=== PATIENT | male | born 1995 | race Caucasian/White ===

== ENCOUNTER 2017-07-23 16:33 | Emergency (ER) | payer OTHER ==
[~2017-07-23] VITALS: Ht 167.6 cm; Wt 62.6 kg
[2017-07-23 16:36] VITALS: BP 120/78
--- NOTE | 2017-07-23 16:40 | ED GI/GU/ABDOMINAL COMPLAINT ---
See Addendum History of Present Illness General Chief Complaint: Male Genitourinary Problems Stated Complaint: PT TESTICULAR PAIN AND SWELLING Source: patient Exam Limitations: no limitations Vital Signs & Intake/Output Vital Signs & Intake/Output Vital Signs Date Time Temp Pulse Resp B/P B/P Pulse O2 O2 Flow FiO2 Mean Ox Delivery Rate 07/23 1636 98.0 71 18 120/78 98 Room Air Allergies Coded Allergies: No Known Allergies (07/23/17) Triage Note: 21 YO MALE TO TRIAGE FROM URGENT CARE FOR EVAL OF SWOLLEN TESTICLE X3 DAYS. REPORTS BURNING WITH URIANTION. Triage Nurses Notes Reviewed? yes Onset: Gradual Duration: constant Timing: recent history Severity Numbers: 5 HPI: Patient is a 21-year-old male who presents emergency room with concerns of a three-day history of gradual onset of right-sided lower pelvic and testicular pain patient does state that she days prior to the onset of symptoms he has had significant increase of his workouts and lifting heavy weights Patient's last sexual encounter was approximately 2 months ago. Patient is also complaining of pain with urination however denies any urethral discharge. Denies any erythema or worse or skin irritation or vesicles to the region. Denies any nausea vomiting abdominal pain or testicular swelling (Tanner Keenan) Past History Travel History Traveled to [place] past 21 day No Medical History Any Pertinent Medical History? see below for history Neurological: NONE EENT: NONE Cardiovascular: NONE Respiratory: asthma Gastrointestinal: NONE Hepatic: NONE Renal: NONE Musculoskeletal: NONE Psychiatric: NONE Endocrine: NONE Blood Disorders: NONE Cancer(s): NONE FISHERIES SPECIALIST/Reproductive: NONE Surgical History Surgical History: non-contributory Psychosocial History What is your primary language Luxembourgish Tobacco Use: Current Daily Use Daily Tobacco Use Amount/Type: =< 4 Cigarettes daily Family History Hx Contributory? No (Tanner Keenan) Review of Systems Review of Systems Constitutional: Reports: no symptoms. EENTM: Reports: no symptoms. Respiratory: Reports: no symptoms. Cardiovascular: Reports: no symptoms. GI: Reports: see HPI. Genitourinary: Reports: see HPI, urgency. Musculoskeletal: Reports: no symptoms. Skin: Reports: no symptoms. Neurological/Psychological: Reports: no symptoms. Hematologic/Endocrine: Reports: no symptoms. Immunologic/Allergic: Reports: no symptoms. All Other Systems: Reviewed and Negative (Tanner Keenan) Physical Exam Physical Exam General Appearance: no apparent distress, alert, comfortable Head: atraumatic Eyes: Bilateral: normal appearance. Ears, Nose, Throat, Mouth: moist mucous membrane Neck: normal inspection Respiratory: normal breath sounds Gastrointestinal: normal bowel sounds, soft Extremities: normal range of motion Neurologic/Psych: no motor/sensory deficits, awake Skin: intact, normal color Comments: -normal inspection mild generalized right testicular pain no swelling noted cremaster reflex intact no observable hernia mild right lower pelvic point tenderness, no rebound tenderness no right lower quadrant abdominal pain No urethral discharge Core Measures ACS in differential dx? No Sepsis Present: No Sepsis Focused Exam Completed? No (Michelle DANIELS,Tanner) Progress Differential Diagnosis: appendicitis, biliary colic, bowel obstruction, epididymitis, esophageal varices, gastritis, hepatitis, hernia, hemorrhoids, ischemic bowel, inflamm bowel dis, orchitis, pancreatitis, prostatitis, peptic ulcer, PUD/GERD, perforated viscous, pyelonephritis, SBO, STD, testicular torsion, ureterolithiasis, urinary retention, urethritis, UTI/pyelo Plan of Care: Orders Procedure Date/time Status CULTURE,URINE 07/23 163 Active URINALYSIS 07/23 163 Complete Laboratory Tests 07/23/17 1651: Urine Color STRAW, Urine Clarity CLEAR, Urine pH 6.5, Ur Specific Cullen 1.020, Urine Protein NEG, Urine Ketones NEG, Urine Nitrite NEG, Urine Bilirubin NEG, Urine Urobilinogen 0.2, Ur Leukocyte Esterase NEG, Ur Microscopic EXAM NOT REQUIRED, Urine Hemoglobin NEG, Urine Glucose NEG Microbiology 07/23 1651 URINE ROUT: Urine Culture - RECD On examination there is no concerns of appendicitis. No concerns at this time of testicular torsion however ultrasound will be obtained. Urinalysis currently pending. No observable hernia is noted on exam patient was able to perform trunk flexion in the supine position to activate patient's abdominal wall in which he has nontender abdomen performing this activity no signs of hernia Patient one reevaluated again is resting comfortably at bedside again no right lower abdominal pain but patient does have minimal right groin pain 5 out of 5 resisted range of motion noted with hip abduction to right lower extremity I reviewed a urinalysis and ultrasound with patient patient was strongly advised to follow-up with an established [place] faculty practice and to follow-up with Dr. Landry for possible abdominal wall hernia Diagnostic Imaging: Viewed by Me: Ultrasound. Radiology Impression: no acute abnormality, no fracture Initial ED EKG: none Comments: PATIENT: MACRINA MCKEON PRESENT AGE: 21 PATIENT ACCOUNT NO: [id number] : 96 LOCATION: [facility] ORDERING PHYSICIAN: Tanner DANIELS SERVICE DATE: 07/23/17 EXAM TYPE: US - US-TESTICULAR EXAMINATION: US SCROTUM CLINICAL INFORMATION: Testicular pain and swelling. COMPARISON: None TECHNIQUE: A sonogram of the scrotum was performed assessing plata-scale appearance and color Doppler flow. Spectral analysis and Doppler interrogation was performed. FINDINGS: RIGHT: Right testicle measures 3.8 x 2.3 x 3.4 cm, volume 21 mL. Parenchymal echotexture is normal. No focal testicular parenchymal lesions are visualized. Normal symmetric intratesticular Doppler flow is visualized. Right epididymal head is normal in size. No right hydrocele or varicocele is seen. LEFT: Left testicle measures 3.3 x 2.8 x 2.6 cm, volume 17 mL. Parenchymal echotexture is normal. No focal testicular parenchymal lesions are visualized. Normal symmetric intratesticular Doppler flow is visualized. Left epididymal head is normal in size. No left hydrocele or varicocele is seen. IMPRESSION: Normal. DICTATED BY: Jaswant Pelletier MD DATE/TIME DICTATED:07/23/171745 AUDIO VISUAL PROJECT MANAGER:HANNAH (Tanner Keenan) Departure Departure Disposition: HOME OR SELF CARE Condition: Stable Clinical Impression Primary Impression: Right groin pain Secondary Impressions: Testicular pain, right Referrals: Frantz HALE,Karthik Collins Additional Instructions: As discussed begin [id number] ibuprofen for pain and inflammation, if no better next week follow-up with surgeon Dr. Landry. Follow-up tomorrow with [facility] practice to establish a doctor. If symptoms worsen or if he develop any new concerning symptom return to emergency room, the next week please limits your physical activity especially significant exercising as this may worsen your symptoms Departure Forms: Customer Survey General Discharge Information (Tanner Keenan) PA/CERAMICS TECHNICIAN Co-Sign Statement Statement: ED Attending supervision documentation- [] I saw and evaluated the patient. I have also reviewed all the pertinent lab results and diagnostic results. I agree with the findings and the plan of care as documented in the PA's/CERAMICS TECHNICIAN's documentation. [X] I have reviewed the ED Record and agree with the PA's/CERAMICS TECHNICIAN's documentation. [] Additions or exceptions (if any) to the PAs/CERAMICS TECHNICIAN's note and plan are summarized below: [] (Brad Olivares DO)
--- NOTE | 2017-07-23 17:51 | ULTRASOUND REPORT ---
EXAMINATION: US SCROTUM CLINICAL INFORMATION: Testicular pain and swelling. COMPARISON: None TECHNIQUE: A sonogram of the scrotum was performed assessing plata-scale appearance and color Doppler flow. Spectral analysis and Doppler interrogation was performed. FINDINGS: RIGHT: Right testicle measures 3.8 x 2.3 x 3.4 cm, volume 21 mL. Parenchymal echotexture is normal. No focal testicular parenchymal lesions are visualized. Normal symmetric intratesticular Doppler flow is visualized. Right epididymal head is normal in size. No right hydrocele or varicocele is seen. LEFT: Left testicle measures 3.3 x 2.8 x 2.6 cm, volume 17 mL. Parenchymal echotexture is normal. No focal testicular parenchymal lesions are visualized. Normal symmetric intratesticular Doppler flow is visualized. Left epididymal head is normal in size. No left hydrocele or varicocele is seen. IMPRESSION: Normal.
== END 2017-07-23 18:19 ==
LOC: ERH 16:33
DX: R10.31 Right lower quadrant pain (principal); N50.811 Right testicular pain
CPT/HCPCS: 81003; 87086